=== PATIENT | male | born 1965 | race African-American/Black ===

== ENCOUNTER 2021-03-13 14:21 | Emergency (ER) | payer OTHER ==
[~2021-03-13] VITALS: Ht 175.3 cm; Wt 83.9 kg
[2021-03-13] MEDS ORDERED: OMEPRAZOLE20 MG PO (14:37)
[2021-03-13] MEDS ORDERED: MIRALAX119 GM (14:37)
[2021-03-13] MEDS ORDERED: FLOMAX0.4 MG PO (14:38)
[2021-03-13] MEDS ORDERED: PAMELOR50 MG PO (14:38)
[2021-03-13] MEDS ORDERED: ZESTRIL40 MG PO (14:39)
[2021-03-13] MEDS ORDERED: AMLODIPINE BESYL5 MG PO (14:39)
--- NOTE | 2021-03-13 18:13 | EKG ---
[facility] [address] [facility] [place], [place] [address] Signed Sinus tachycardia Otherwise normal ECG No previous ECGs available Confirmed by DILLAN OVIEDO MD ([id number] on 03/13/2021 6:12:58 PM Electronically Signed By: DILLAN OVIEDO MD 03/13/21 181 PATIENT NAME: QUYNH OLIVA MARY Electrocardiogram DATE OF : 69 PHYSICIAN: DILLAN OVIEDO MD REPORT #: [id number] REPORT IS CONFIDENTIAL AND NOT TO BE RELEASED WITHOUT AUTHORIZATION
== END 2021-03-13 17:08 | disposition home or self-care (01) ==
LOC: ED 14:21
DX: R07.9 Chest pain, unspecified (principal); T46.2X5A Adverse effect of other antidysrhythmic drugs, initial encounter
CPT/HCPCS: 71045; 80053; 83735; 84484; 85025; 93005; 93010; 99285-25